=== PATIENT | male | born 1975 | race Caucasian/White ===

== ENCOUNTER 2016-06-07 18:32 | Emergency (ER) | payer BC ==
[~2016-06-07 18:32] MED LIST: BENTYL20 MG PO; KLONOPIN TAB 00.5 MG PO; LAMICTAL200 MG PO; LISINOPRIL-HCT1 EAC1 PO; PANTOPRAZOLE SO40 MG PO; REGLAN10 MG PO
== END 2016-06-07 20:38 | disposition home or self-care (01) ==
LOC: ER1 18:32
DX: M25.572 Pain in left ankle and joints of left foot (principal); I10 Essential (primary) hypertension; Z88.8 Allergy status to other drugs, medicaments and biological substances; Z79.899 Other long term (current) drug therapy
CPT/HCPCS: 73700; 99283

== ENCOUNTER → 2016-06-09 | Outpatient (CLI) | payer BC | LOC: MRI 14:00 | DX: M25.572 Pain in left ankle and joints of left foot (principal); M25.472 Effusion, left ankle; R93.7 Abnormal findings on diagnostic imaging of other parts of musculoskeletal system | CPT/HCPCS: 73721 ==

== ENCOUNTER 2016-08-15 11:44 | Emergency (ER) | payer BC | END 2016-08-15 13:29 | disposition home or self-care (01) | LOC: ER1 11:44 | DX: L73.2 Hidradenitis suppurativa (principal); I10 Essential (primary) hypertension; Z88.8 Allergy status to other drugs, medicaments and biological substances | CPT/HCPCS: 10061; 87070; 87077; 87186; 87205; 99283 ==

== ENCOUNTER → 2020-05-20 | Outpatient (CLI) | payer BC ==
[2020-05-20 19:35] LABS: HEMOGLOBIN 15.6 gm/dl (14.0-17.5); RED BLOOD COUNT 5.15 M/UL (4.20-5.50)
[2020-05-20 19:50] LABS: BUN/CREATININE RATIO 17 (0-10)
[2020-05-22 09:15] LABS: ESTRADIOL 6.5 pg/mL (7.6-42.6); FSH, SERUM 6.5 mIU/mL (1.5-12.4); PROGESTERONE 0.2 ng/mL (0.0-0.5); PROSTATE SPECIFIC AG, SERUM 0.5 ng/mL (0.0-4.0); PSA, FREE 0.28 ng/mL
== END ==
LOC: LAB 18:38
PROVIDERS: Nurse Practitioner Family
DX: I10 Essential (primary) hypertension (principal); F31.61 Bipolar disorder, current episode mixed, mild; K58.8 Other irritable bowel syndrome; N40.0 Benign prostatic hyperplasia without lower urinary tract symptoms; G47.00 Insomnia, unspecified; E78.5 Hyperlipidemia, unspecified; E34.50 Androgen insensitivity syndrome, unspecified; E55.9 Vitamin D deficiency, unspecified; R53.82 Chronic fatigue, unspecified; R53.83 Other fatigue; R94.5 Abnormal results of liver function studies; M25.50 Pain in unspecified joint
CPT/HCPCS: 80053; 80061; 82607; 82652; 82670; 82728; 83001; 83002; 83540; 83550; 84144; 84153; 84154; 84260; 84410; 84443; 85025; G0103

== ENCOUNTER → 2020-07-18 | Outpatient (CLI) | payer BC ==
[2020-07-18 06:29] LABS: HEMOGLOBIN 14.1 gm/dl (14.0-17.5); RED BLOOD COUNT 4.57 M/UL (4.20-5.50); WHITE BLOOD COUNT 7.3 K/UL (4.5-11.0)
[2020-07-18 06:54] LABS: BUN/CREATININE RATIO 18 (0-10)
[2020-07-19 04:12] LABS: % FREE PSA 48.3 % (.); PROSTATE SPECIFIC AG, SERUM 0.6 ng/mL (0.0-4.0); PSA, FREE 0.29 ng/mL
== END ==
LOC: LAB 06:08
PROVIDERS: Nurse Practitioner Family
DX: I10 Essential (primary) hypertension (principal); K21.9 Gastro-esophageal reflux disease without esophagitis; N40.0 Benign prostatic hyperplasia without lower urinary tract symptoms; F31.61 Bipolar disorder, current episode mixed, mild; K58.8 Other irritable bowel syndrome; E78.5 Hyperlipidemia, unspecified; R53.83 Other fatigue; M25.561 Pain in right knee; G47.00 Insomnia, unspecified; E55.9 Vitamin D deficiency, unspecified
CPT/HCPCS: 36415; 80053; 80061; 82607; 82652; 82728; 83540; 83550; 84153; 84154; 84443; 84550; 85025; 85652

== ENCOUNTER → 2020-08-02 | Outpatient (CLI) | payer BC | LOC: MRI 13:38 | DX: M25.561 Pain in right knee (principal) | CPT/HCPCS: 73721 ==

== ENCOUNTER → 2020-10-03 | Outpatient (CLI) | payer BC ==
[2020-10-03 07:07] LABS: HEMOGLOBIN 15.9 gm/dl (14.0-17.5); RED BLOOD COUNT 5.6 M/UL (4.20-5.50); WHITE BLOOD COUNT 12.1 K/UL (4.5-11.0)
[2020-10-03 07:27] LABS: BUN/CREATININE RATIO 13 (0-10)
[2020-10-04 08:13] LABS: HBSAG SCREEN Negative (Negative); HEP A AB, IGM Negative (Negative); HEP B CORE AB, IGM Negative (Negative); HEP C VIRUS AB <0.1 (0.0-0.9); VITAMIN D, 25-HYDROXY 35.9 ng/mL (30.0-100.0)
[2020-10-04 09:13] LABS: TESTOSTERONE, SERUM 166 ng/dL (264-916)
== END ==
LOC: LAB 06:36
PROVIDERS: Nurse Practitioner Family
DX: I10 Essential (primary) hypertension (principal); Z79.899 Other long term (current) drug therapy; R53.83 Other fatigue; E55.9 Vitamin D deficiency, unspecified; F31.9 Bipolar disorder, unspecified; F41.0 Panic disorder [episodic paroxysmal anxiety]
CPT/HCPCS: 36415; 80053; 80061; 80074; 82550; 82607; 83036; 83540; 83550; 84403; 84439; 84443; 84550; 85025; 85652; 86140

== ENCOUNTER → 2021-04-19 | Outpatient (CLI) | payer BC ==
[2021-04-19 11:26] LABS: HEMOGLOBIN 16.4 gm/dl (14.0-17.5); RED BLOOD COUNT 5.6 M/UL (4.20-5.50)
[2021-04-19 11:47] LABS: BUN/CREATININE RATIO 14 (0-10)
[2021-04-20 12:12] LABS: TESTOSTERONE, SERUM 126 ng/dL (264-916)
[2021-04-21 05:39] LABS: VITAMIN D, 25-HYDROXY 29.3 ng/mL (30.0-100.0)
== END ==
LOC: LAB 10:53
PROVIDERS: Nurse Practitioner
DX: F43.10 Post-traumatic stress disorder, unspecified (principal); F32.2 Major depressive disorder, single episode, severe without psychotic features; R53.83 Other fatigue
CPT/HCPCS: 80053; 80061; 82607; 84153; 84403; 84439; 84443; 85027

== ENCOUNTER → 2021-07-16 | Outpatient (CLI) | payer BC ==
[2021-07-16 06:35] LABS: HEMOGLOBIN 15.4 gm/dl (14.0-17.5); RED BLOOD COUNT 5.22 M/UL (4.20-5.50); WHITE BLOOD COUNT 5.8 K/UL (4.5-11.0)
[2021-07-16 06:54] LABS: BUN/CREATININE RATIO 15 (0-10)
[2021-07-17 08:18] LABS: LUTEINIZING HORMONE(LH) <0.3 mIU/mL (1.7-8.6); RHEUMATOID ARTHRITIS FACTOR <10.0 IU/mL (<14.0); TESTOSTERONE, SERUM 1101 ng/dL (264-916); VITAMIN D, 25-HYDROXY 53.4 ng/mL (30.0-100.0)
== END ==
LOC: LAB 05:51
PROVIDERS: Nurse Practitioner
DX: I10 Essential (primary) hypertension (principal); E78.5 Hyperlipidemia, unspecified; M10.9 Gout, unspecified; N40.1 Benign prostatic hyperplasia with lower urinary tract symptoms; E83.119 Hemochromatosis, unspecified; E29.1 Testicular hypofunction; M13.0 Polyarthritis, unspecified; E55.9 Vitamin D deficiency, unspecified
CPT/HCPCS: 36415; 80053; 80061; 82607; 82728; 83002; 83540; 83550; 84403; 84550; 85025; 85652; 86038; 86140; 86431

== ENCOUNTER 2021-08-10 22:53 | Emergency (ER) | payer BC | END 2021-08-10 23:25 | disposition home or self-care (01) | LOC: ER1 22:53 | DX: S92.511A Displaced fracture of proximal phalanx of right lesser toe(s), initial encounter for closed fracture (principal); I10 Essential (primary) hypertension; W22.8XXA Striking against or struck by other objects, initial encounter; Y92.009 Unspecified place in unspecified non-institutional (private) residence as the place of occurrence of the external cause | CPT/HCPCS: 64450; 73630; 99283 ==

== ENCOUNTER → 2021-08-31 | Outpatient (CLI) | payer BC | LOC: US 14:30 | DX: Z53.9 Procedure and treatment not carried out, unspecified reason (principal) | CPT/HCPCS: 76641-RT ==

== ENCOUNTER → 2021-09-25 | Outpatient (CLI) | payer BC ==
[2021-09-25 06:11] LABS: HEMOGLOBIN 13.1 gm/dl (14.0-17.5); RED BLOOD COUNT 4.54 M/UL (4.20-5.50)
[2021-09-25 06:32] LABS: BUN/CREATININE RATIO 17 (0-10)
[2021-09-26 07:10] LABS: VITAMIN D, 25-HYDROXY 41.6 ng/mL (30.0-100.0)
[2021-09-26 08:13] LABS: TESTOSTERONE, SERUM 401 ng/dL (264-916)
== END ==
LOC: LAB 05:46
PROVIDERS: Nurse Practitioner
DX: M10.9 Gout, unspecified (principal); E55.9 Vitamin D deficiency, unspecified; I10 Essential (primary) hypertension; E29.1 Testicular hypofunction
CPT/HCPCS: 36415; 80053; 80061; 84146; 84403; 84550; 85025